=== PATIENT | male | born 1955 | race African-American/Black ===

== ENCOUNTER 2017-09-05 04:36 | Emergency (ER) | payer MEDICARE, OTHER ==
[~2017-09-05] VITALS: Ht 188 cm; Wt 109.8 kg
[~2017-09-05 04:36] MED LIST: ATEN-60 PO; CARI250T; CIPR-173 PO; HIGH CHOLESTEROL MED; HYDR-4683 PO; METR500T PO; TIZA4TAB9 PO; TRIA37.577 PO
[2017-09-05 06:06] LABS: Hematocrit 41.5 % (41.0-53.0); Hemoglobin 14.1 g/dL (13.5-17.5); Mean Corpuscular Hemoglobin 29.5 pg (28.0-32.0); Mean Corpuscular Volume 86.5 fL (80.0-100.0); Platelet Count (auto) 183 10^3/uL (140-450); Red Blood Cells 4.79 10^6/uL (4.5-5.90); Red Cell Distribution Width 13.7 % (11.8-14.3); White Blood Cell 5.5 10^3/uL (4.4-10.8)
[2017-09-05 06:10] LABS: Albumin 3.4 g/dL (3.4-5.0); BUN/Creatinine Ratio 17.1; Calcium 8.6 mg/dL (8.5-10.1); Potassium 3.6 mmol/L (3.5-5.1)
[2017-09-05 06:12] LABS: Bilirubin, Total 0.3 mg/dL (0.2-1.0); Total Protein 6.9 g/dL (6.4-8.2)
[2017-09-05 06:20] LABS: Basophils % (manual) 0 (0.0-2.0); Blast Cells 0; Metamyelocytes % 0; Myelocytes % 0; Promyelocytes % 0; Reactive Lymphocytes 0
[2017-09-05 06:55] LABS: Band Neutrophils % (manual) 6; Eosinophils % (manual) 2 (0-7); Lymphocytes % (manual) 22 (10.0-50.0); Monocytes % (manual) 17 (0-12)
[2017-09-05] MEDS ORDERED: SODIUM CHLORIDE 0.9% 1,000 ML IVB ONE (06:58)
[2017-09-05] MEDS ORDERED: METOCLOPRAMIDE HCL 5MG/ml INJ 2ml VIAL IV ONE (07:00)
[2017-09-05] MEDS ORDERED: cefTRIAXone 1GM/10ml StH20 or NS KIT IVpush IV ONE (07:00)
[2017-09-05] MEDS ORDERED: MORPHINE SULFATE 4 MG/ML SYR/VIAL IV ONE (07:00)
[2017-09-05] MEDS ORDERED: MORPHINE SULFATE INJECTION 1 ML ONE (07:25)
[2017-09-05 07:44] LABS: Magnesium 2.3 mg/dL (1.6-2.6)
[2017-09-05 09:19] LABS: Urine Bacteria FEW /hpf (None Seen); Urine Blood 1+ /uL (Negative); Urine WBC 3 /hpf (0 - 3)
[2017-09-05 11:15] VITALS: BP 130/77
== END 2017-09-05 11:39 | disposition home or self-care (01) ==
LOC: ER 04:38
DX: K57.92 Diverticulitis of intestine, part unspecified, without perforation or abscess without bleeding (principal); N39.0 Urinary tract infection, site not specified; I10 Essential (primary) hypertension; R11.2 Nausea with vomiting, unspecified; Z90.49 Acquired absence of other specified parts of digestive tract
CPT/HCPCS: 36415; 74176; 80053; 81001; 83690; 83735; 84443; 85007; 85027; 96361; 96374; 96375; 99285; J2270; J2765; J7030

== ENCOUNTER 2018-01-16 10:48 | Emergency (ER) | payer MEDICARE, OTHER ==
[~2018-01-16] VITALS: Ht 188 cm; Wt 103.0 kg
[2018-01-16 10:58] VITALS: BP 145/78
[2018-01-16] MEDS: KETOROLAC TROMETH 60MG/2ML VIAL IM ONE (12:00)
[2018-01-16] MEDS: METHOCARBAMOL 500 MG TAB PO ONE (12:01)
== END 2018-01-16 13:52 | disposition home or self-care (01) ==
LOC: ER 10:49
DX: M25.552 Pain in left hip (principal); I10 Essential (primary) hypertension; F12.10 Cannabis abuse, uncomplicated; Z90.49 Acquired absence of other specified parts of digestive tract
CPT/HCPCS: 73502; 96372; 99284; J1885

== ENCOUNTER 2018-03-12 11:35 | Emergency (ER) | payer MEDICARE, OTHER ==
[~2018-03-12] VITALS: Ht 188 cm; Wt 104.3 kg
[2018-03-12 13:13] VITALS: BP 124/87
[2018-03-12] MEDS ORDERED: KETOROLAC TROMETH 60MG/2ML VIAL IM ONE (14:00)
== END 2018-03-12 14:15 | disposition home or self-care (01) ==
LOC: ER 11:35
DX: S83.92XA Sprain of unspecified site of left knee, initial encounter (principal); I10 Essential (primary) hypertension; F12.10 Cannabis abuse, uncomplicated; Z90.49 Acquired absence of other specified parts of digestive tract; W10.8XXA Fall (on) (from) other stairs and steps, initial encounter; Y93.89 Activity, other specified; Y92.89 Other specified places as the place of occurrence of the external cause; Y99.8 Other external cause status
CPT/HCPCS: 73562; 96372; 99283; J1885

== ENCOUNTER 2022-09-28 09:10 | Emergency (ER) | payer MEDICARE, OTHER ==
[~2022-09-28] VITALS: Ht 188 cm; Wt 106.0 kg
[~2022-09-28 09:10] MED LIST changes: -HYDR-4683 PO; +HYDR-4833 PO
[2022-09-28] MEDS ORDERED: PROMETHAZINE HCL 25 MG/ML 1ML IM ONE (10:30)
[2022-09-28] MEDS ORDERED: HYDROmorphone HCL 2 MG/ML VL/or syr IM ONE (10:30)
[2022-09-28 11:05] VITALS: BP 134/79
== END 2022-09-28 11:04 | disposition home or self-care (01) ==
LOC: ER 09:10
DX: G89.29 Other chronic pain (principal); M54.50 Low back pain, unspecified; F12.10 Cannabis abuse, uncomplicated; I10 Essential (primary) hypertension; Z90.49 Acquired absence of other specified parts of digestive tract
CPT/HCPCS: 96372; 99284; J1170; J2550

== ENCOUNTER 2022-09-30 08:18 | Emergency (ER) | payer MEDICARE, OTHER ==
[~2022-09-30] VITALS: Ht 188 cm; Wt 105.5 kg
[2022-09-30] MEDS ORDERED: PROMETHAZINE HCL 25 MG/ML 1ML IM ONE (09:15)
[2022-09-30] MEDS ORDERED: HYDROmorphone HCL 2 MG/ML VL/or syr IM ONE (09:15)
[2022-09-30 09:59] VITALS: BP 132/80
== END 2022-09-30 10:02 | disposition home or self-care (01) ==
LOC: ER 08:18
DX: G89.29 Other chronic pain (principal); M54.50 Low back pain, unspecified; I10 Essential (primary) hypertension; F12.10 Cannabis abuse, uncomplicated; Z90.49 Acquired absence of other specified parts of digestive tract; Z88.1 Allergy status to other antibiotic agents; Z88.6 Allergy status to analgesic agent
CPT/HCPCS: 96372; 99284; J1170; J2550

== ENCOUNTER 2024-01-17 07:01 | Emergency (ER) | payer MEDICARE, OTHER ==
[~2024-01-17] VITALS: Ht 188 cm; Wt 104.4 kg
[2024-01-17 07:52] VITALS: TEMP 97.8; O2SAT 95
[2024-01-17] MEDS ORDERED: HYDROmorphone HCL 2 MG/ML VL/or syr IM ONE (08:00)
[2024-01-17] MEDS: ONDANSETRON ODT 4 MG TAB PO ONE (08:05)
[2024-01-17] MEDS: MORPHINE SULFATE INJ 2 MG/ml SYRG IM ONE (08:06)
[2024-01-17 08:31] VITALS: BP 137/88; PULSE 64; RESP 15
== END 2024-01-17 08:37 | disposition home or self-care (01) ==
LOC: ER 07:01
DX: G89.29 Other chronic pain (principal); M54.50 Low back pain, unspecified; I10 Essential (primary) hypertension; F15.90 Other stimulant use, unspecified, uncomplicated; Z90.49 Acquired absence of other specified parts of digestive tract; Z79.899 Other long term (current) drug therapy
CPT/HCPCS: 96372; 99283; J2270; Q0162